=== PATIENT | male | born 1950 | race Caucasian/White ===

== ENCOUNTER → 2018-12-19 | Day surgery (SDC) | payer MEDICARE, BC ==
[2018-12-17 14:11] LABS: BASOPHILS # (AUTO) 0.1 (0.0-0.1); BASOPHILS % 0.7 % (0.0-1.0); EOSINOPHILS # (AUTO) 0.1 (0.0-0.4); EOSINOPHILS % 0.8 % (0.0-6.0); HEMATOCRIT 36.2 % (38.2-49.6); HEMOGLOBIN 11.7 g/dL (14.0-18.0); LYMPHOCYTES # (AUTO) 1.5 (1.0-3.2); MEAN CORPUSCULAR HEMOGLOBIN 27.9 pg (28-32); MEAN CORPUSCULAR HGB CONC 32.3 g/dL (31-35); MEAN CORPUSCULAR VOLUME 86.2 fL (81-99); MONOCYTES # (AUTO) 1.1 (0.2-0.8); MONOCYTES % 12.1 % (4.4-11.3); NEUTROPHILS # (AUTO) 6.1 (2.1-6.9); NEUTROPHILS % 69.1 % (38.7-80.0); PLATELET COUNT 223 x10e3/uL (140-360); RED CELL DISTRIBUTION WIDTH 13.6 % (11.7-14.4)
[2018-12-17 14:29] LABS: ANION GAP 11.8 mmol/L (8-16); BLOOD UREA NITROGEN 14 mg/dL (7-26); BUN/CREATININE RATIO 17 (6-25); CALCIUM 8.9 mg/dL (8.4-10.2); CARBON DIOXIDE 28 mmol/L (22-29); CHLORIDE 102 mmol/L (98-107); CREATININE, SERUM 0.82 mg/dL (0.72-1.25); EST GLOMERULAR FILTRATION RATE > 60 ML/MIN (60-); GLUCOSE 110 mg/dL (74-118); POTASSIUM 3.8 mmol/L (3.5-5.1); SODIUM 138 mmol/L (136-145)
--- NOTE | 2018-12-17 14:47 | Diagnostic Imaging Report ---
EXAMINATION: CHEST 2 VIEWS INDICATION: Pre-operative COMPARISON: None FINDINGS: LINES/TUBES:None LUNGS:The lungs are well-inflated. No focal consolidation or pulmonary edema. PLEURA:No pleural effusion or pneumothorax. MEDIASTINUM:The cardiomediastinal silhouette appears normal in size and shape. Atherosclerotic calcifications of the thoracic aorta. BONES/SOFT TISSUES:No acute osseous injury. ABDOMEN:No free air under the diaphragm. IMPRESSION: No focal pneumonia or pulmonary edema. Signed by: Kamlesh Hudson MD on 12/17/2018 2:44 PM
[~2018-12-19] MED LIST: ATORVASTATIN CA10 MG PO; CEFAZOLIN SOD 1 GM VIAL ONE; CHLORTHALIDONE25 MG PO; DEXAMETHASONE SOD PHOS INJ 4 MG/ML VIAL ONE; FENTANYL CITRATE/PF 100MCG/2 ML INJ ONE; LIDOCAINE 1% W/EPINEPHRINE 20 ML VIAL ONE; LIDOCAINE HCL 2% LOCAL INJ 5 ML SDV VIAL INJ ONE; MIDAZOLAM HCL 2 MG/2 ML VIAL ONE; ONDANSETRON HCL INJ 2MG/ML 2ML 2 MG/ML VIAL ONE; PROPOFOL IV EMULSION 10 MG/ML 20 ML VIAL ONE; ROCURONIUM BROMIDE 10 MG/ML 5ML VIAL ONE; SEVOFLURANE INHAL SOLN 250 ML PEN BTL ONE
--- OUTSIDE RECORDS SUMMARY | 2018-12-19 05:20 | XMS REPORT ---
Author Author [facility] Organization [facility] Address Unknown Phone Unavailable Care Team Providers [facility] P[facility] Consultant Name Role Phone SHELLY MARTIN Unavailable Unavailable Payers Payer Name Policy Type Policy Number Effective Date Expiration Date Problems This patient has no known problems. Allergies, Adverse Reactions, Alerts This patient has no known allergies or adverse reactions. Medications This patient has no known medications. Encounters Start Date/Time End Date/Time Encounter Type Admission Type Attending [facility] Care Department Encounter ID 2018-05-13 11:29:00 Inpatient E [facility] [id number] 2018-12-07 07:17:00 2018-12-07 07:17:00 Outpatient [facility] [id number] Results Test Description Test Time Test Comments Text Results Atomic Results Result Comments CHEST 2 VIEWS 2018-12-17 14:43:00 [place] [id number] Patient Name: MAIK GOINS MR #: [id number] : 1950 Age/Sex: 68/M Req #: [id number] Adm Physician: Ordered by: MARIO VARNER, SHELLY VARNER Report #: [id number] Location: OR Room/Bed: Procedure: [id number] DX/CHEST 2 VIEWS Exam Date: 12/17/18 Exam Time: 1400 REPORT STATUS: Signed EXAMINATION: CHEST 2 VIEWS INDICATION: Pre-operative COMPARISON: None FINDINGS: LINES/TUBES:None LUNGS:The lungs are well-inflated. No focal consolidation or pulmonary edema. PLEURA:No pleural effusion or pneumothorax. MEDIASTINUM:The cardiomediastinal silhouette appears normal in size and shape. Atherosclerotic calcifications of the thoracic aorta. BONES/SOFT TISSUES:No acute osseous injury. ABDOMEN:No free air under the diaphragm. IMPRESSION: No focal pneumonia or pulmonary edema. Signed by: Kellee Kapadia MD on 12/17/2018 2:44 PM Dictated By: KELLEE KAPADIA MD [id number] Transcribed By: TONY on 12/17/18 1444 COPY TO: SHELLY MARTIN
[2018-12-19 09:05] VITALS: BP 109/84
--- NOTE | 2018-12-19 11:34 | Operative Report ---
DATE OF PROCEDURE: 12/19/2018 SURGEON: Darius Art MD PREOPERATIVE DIAGNOSIS: Bilateral cervical lymphadenopathy (enlarged lymph nodes). POSTOPERATIVE DIAGNOSIS: Bilateral cervical lymphadenopathy (enlarged lymph nodes). PROCEDURE: Excisional biopsy of right lower lateral enlarged neck lymph nodes. SIGNIFICANT FINDINGS: Enlarged lymph nodes in both sides of the neck. PAPERBOARD BOXES ESTIMATOR: None. ANESTHESIA: General endotracheal tube anesthesia. SPECIMENS REMOVED: Right lower lateral neck lymph nodes. ESTIMATED BLOOD LOSS: Less than 1 mL. COMPLICATIONS: None. INDICATIONS: The patient is a 68-year-old white male with significant enlarged lymphoid tissue involving the neck lymph nodes bilaterally, the adenoids and lingual tonsils. CT neck performed on December 11, 2018 revealed significant enlargement and prominence of lymphoid structures. In-office fine-needle aspiration biopsy of right lower neck lymph node was consistent with mantle cell lymphoma. On examination, he has enlarged lingual tonsils, enlarged adenoids, and enlarged bilateral neck lymph nodes. He is scheduled for excisional biopsy of neck lymph nodes for diagnostic purposes to evaluate significant bilateral cervical lymphadenopathy and lymphoid tissue in the adenoids and lingual tonsils. Risks and complications of the procedures were thoroughly discussed with the patient and his , and they include infection, bleeding, scarring, failure to improve, need for additional operations, possibility of malignancy, and need for further treatment, damage to the spinal accessory nerve causing shoulder immobility and pain, poor cosmetic appearance of the incision, need for blood transfusions, damage to surrounding nerves, blood vessels and muscles. He fully understands and gives consent. DESCRIPTION OF PROCEDURE: The patient was taken to the operating room and placed supine on the operating table, where general anesthesia was achieved through orotracheal intubation. The GlideScope was used to facilitate endotracheal intubation due to the enlarged lingual tonsils. The body was then rotated to the left by placing pillows underneath the right side of the back. The most accessible palpable lymph nodes were in the right lateral lower neck. Injection with 2 mL of 1% lidocaine with 1:100,000 epinephrine was injected along the natural skin crease overlying the palpable lymph node. Ancef was administered. The neck was then prepped and draped in usual sterile fashion. Approximately 3 cm incision was then made through a natural skin crease overlying the palpable lymph node. This was carried out past the platysmal layer. The lymph node was then identified along with an adjoining enlarged lymph node. Both lymph nodes were then removed atraumatically and were sent for permanent section analysis. The specimens were sent fresh. No evidence of bleeding was seen despite Valsalva maneuver. The wound was then repaired with interrupted 4-0 Monocryl to the platysmal layer and through the subcuticular fashion followed by Dermabond. The patient was awakened in the operating room, extubated, and taken to the recovery room in good condition. MD KEN Smith/YOUNG /[id number]
== END | disposition home or self-care (01) ==
LOC: OR 05:16
PROVIDERS: ATTEND Otolaryngology
DX: R59.0 Localized enlarged lymph nodes (principal); C83.11 Mantle cell lymphoma, lymph nodes of head, face, and neck; G47.33 Obstructive sleep apnea (adult) (pediatric); I10 Essential (primary) hypertension; Z01.810 Encounter for preprocedural cardiovascular examination; Z01.812 Encounter for preprocedural laboratory examination; Z01.811 Encounter for preprocedural respiratory examination
CPT/HCPCS: 36415; 38510; 71046; 80048; 85025; 88304; 93005; J0690; J1100; J2001; J2250; J2405; J2704; J3010; 88305